=== PATIENT | female | born 1985 ===

== ENCOUNTER 2016-07-25 13:18 | Inpatient (IN) | payer MEDICAID, OTHER ==
[2016-07-25 13:39] VITALS: BMI 37.9
--- NOTE | 2016-07-25 14:45 | OBHP ---
Datetime: 07/25/2016 14:15 IP Adm Impression: Term, intrauterine ; No Active Labor; Intact Membranes IP Admit Plan: Admit to unit; Initiate labor induction protocol Admit Comment, IP Provider: 31yo IUP at 39w c/o decreased FM and RENDON today. Found to have 2 + urine dip. Occ min CTX; no VB; No SROM PNC: Dr Walker CP chart rev'd PMH: denies PSHX: TUmmy teresack POBGYNH: Hx HSV x 2 TOP x 1 NKA A: IUP at 39+w Proteinuria decreased FM PLAN: spoke to Dr Garzon will admit to L_D check pre-eclampsia labs start IOL with Cervidil...medications, pain management, delivery and discussed Pelvic Type - PN: Adequate Extremities - PN: Normal Abdomen - PN: Normal Back - PN: Normal Breast - PN: Not Done Lungs - PN: Normal Heart - PN: Normal Thyroid - PN: Normal Neurologic - PN: Normal HEENT - PN: Normal General - PN: Normal Presentation-Admit: Vertex FHR - Baseline A Provider: 140 Membranes, Provider: Intact Contraction Comments Provider: one Comments, ACOG Physical Exam: ROS: Geneeral no fatigue HEENT: + RENDON no visual dist CV: no CP; no SOB Resp: no SOB no cough GI: No N/V/D : no F/U/D MS: no joint pain Pool Provider: Negative IP Hx Assessment: The History has been Reviewed and is Current EGA AdmitDate IP: 39.1 Vital Signs Provider: Reviewed; Within Normal Limits IP Chief Complaint: Other NICHD Variability Prov Fetus A: Moderate 6-25bpm NICHD Accel Fetus A IP Provider: 15X15 FHR Category Provider Fetus A: Category I NICHD Decel Fetus A IP Provider: None Dilatation, Provider: FT Genitourinary Exam: Normal DTRs - PN: Abnormal
[2016-07-25 15:42] LABS: BASO % 0.5 % (0.0-2.0); EOS % 0.5 % (0.0-4.0); HEMATOCRIT 35.3 % (34.0-47.0); LYMPH # 1.9 K/uL (1.0-4.3); LYMPH % 21.8 % (20.0-40.0); MEAN CELL VOLUME 82.9 fl (81.0-99.0); MEAN CORPUSCULAR HEMOGLOBIN 27.3 pg (27.0-31.0); MEAN CORPUSCULAR HGB CONC 32.9 g/dL (33.0-37.0); MEAN PLATELET VOLUME 10.2 fl (7.2-11.7); MONO # 0.4 K/uL (0.0-0.8); MONO % 4.3 % (0.0-10.0); NEUT # 6.4 K/uL (1.8-7.0); NEUT % 72.9 % (50.0-75.0); NRBC % 0.1 % (0.0-0.0); RED CELL DISTRIBUTION WIDTH 16.1 % (11.5-14.5); WHITE BLOOD COUNT 8.8 K/uL (4.8-10.8)
[2016-07-25 15:50] LABS: ALB/GLOB RATIO 0.9 (1.0-2.1); ALKALINE PHOSPHATASE 207 U/L (38-126); ALT/SGPT 31 U/L (9-52); AST/SGOT 20 U/L (14-36); BILIRUBIN,TOTAL 0.3 mg/dl (0.2-1.3); BLOOD UREA NITROGEN 11 mg/dl (7-17); CALCIUM 9.3 mg/dL (8.4-10.2); CARBON DIOXIDE 19 mmol/L (22-30); CHLORIDE 108 mmol/L (98-107); GFR AFRICAN-AMERICAN > 60; GLUCOSE,RANDOM 78 mg/dL (65-105); POTASSIUM 4.2 MMOL/L (3.6-5.0); SODIUM 141 mmol/l (132-148); TOTAL PROTEIN 6.9 G/DL (6.3-8.2); URIC ACID 4.2 mg/Dl (2.2-7.5)
[2016-07-25 16:03] VITALS: BP 116/71; PULSE 92; RESP 18; TEMP 98.6
[2016-07-25 16:03] LABS: RBC URINE 235 /hpf (0-3); URINE BILIRUBIN NEGATIVE (NEGATIVE); URINE BLOOD LARGE (NEGATIVE); URINE COLOR AMBER (YELLOW); URINE GLUCOSE (UA) NEG (Normal); URINE KETONE NEGATIVE (NEGATIVE); URINE LEUKOCYTE ESTERASE SMALL Leu/uL (Negative); URINE PROTEIN 100 mg/dL (NEGATIVE); URINE UROBILINOGEN 0.2-1.0 mg/dL (0.2-1.0); WBC URINE 74 /hpf (0-5)
--- NOTE | 2016-07-25 17:38 | OBADHP ---
Datetime: 07/25/2016 17:32 IP Chief Complaint Other: proteinuria/headaches IP Adm Impression Other: decreased fm, labor pains and proteinuria Admit Comment, IP Provider: GBS neg will admit and augument labor Pt understands and agreed Extremities - PN: Normal Abdomen - PN: Abnormal Breast - PN: Normal Lungs - PN: Normal Thyroid - PN: Normal Neurologic - PN: Normal HEENT - PN: Normal General - PN: Normal Presentation-Admit: cephalic FHR - Baseline A Provider: 140's Comments, ACOG Physical Exam: Abd gravid NT, fundus at term, Ext no calf tenderness DTS slightly angelica sk Gestation - Est Wks by US: 39.0 IP Chief Complaint: Uterine contractions; Decreased movement; Other NICHD Variability Prov Fetus A: Moderate 6-25bpm NICHD Accel Fetus A IP Provider: 10X10 NICHD Decel Fetus A IP Provider: None Genitourinary Exam: Normal DTRs - PN: Abnormal EGA AdmitDate IP: 39.1 IP Adm Impression: Term, intrauterine ; No Active Labor IP Admit Plan: Admit to unit; Initiate labor augmentation protocol
[2016-07-26] MEDS ORDERED: Lactated Ringer's 1,000 ML IV SCH ×2 (00:30→01:00)
--- NOTE | 2016-07-26 01:26 | OBDS ---
MATERNAL INFORMATION Estimated Blood Loss (ml): 200cc Maternal Complications: None Provider Comments: Delivered a living baby boy appears term cried spontaneously AF meconium stained 9/9' Placenta complete and intact Uterus contracted well no complications No vaginal cervical o r perineal tears Rectal done no defects LABOR SUMMARY EDC: 07/31/2016 00:00 LABOR INFORMATION Cervical Ripening Agents: Cervidil (Annotations: applied vaginally by ) Group B Beta Strep: Negative Steroids Given: None Reason Steroids Not Administered: Not Applicable VAGINAL DELIVERY Episiotomy: None Laceration Extension: N/A Laceration Type: None Laceration Repair: Not Applicable Laceration Repair Note: n/a Sponge Count Correct: Yes Sharps Count Correct: N/A Count Comment: count correct BABY A INFORMATION Forceps: N/A Vacuum Extraction: N/A Shoulder Dystocia : No PRESENTATION/POSITION BABY A Presentation: Cephalic Cephalic Presentation: Vertex Vertex Position: Left Occipital Anterior Breech Presentation: N/A
[2016-07-26] MEDS ORDERED: Oxycodone/Acetaminophen 5/325 mg Tab PO PRN (01:37)
[2016-07-26] MEDS ORDERED: Oxytocin 30 units/LR 500ML 30 U/500 ML BAG IV SCH (01:37)
[2016-07-26 12:02] LABS: HEMATOCRIT 31.7 % (34.0-47.0); MEAN CELL VOLUME 82.4 fl (81.0-99.0); MEAN CORPUSCULAR HEMOGLOBIN 27.4 pg (27.0-31.0); MEAN CORPUSCULAR HGB CONC 33.2 g/dL (33.0-37.0); RED CELL DISTRIBUTION WIDTH 15.5 % (11.5-14.5)
--- NOTE | 2016-07-27 07:52 | OBPPN ---
Datetime: 07/27/2016 07:46 PP Pain Prov: Within normal limits PP Pain Prov comment: no SOB, chest pains or leg pains PP Nausea Prov: Denies PP Flatus Prov: Yes PP Lungs Prov: Normal PP Abdomen/Uterus Prov: Abnormal PP Lochia Prov: Normal PP Vulva/Perineum Prov: Normal PP CVA Tenderness Prov: Normal PP Extremities Prov: Normal PP C/S Incision Prov: Not Applicable PP Progress Prov: Normal PP Comments Phys Exam Prov: Abd soft not distended fundus firm below the umb NT, Perineum intact Ext no calf tenderness PP Impression Prov: Normal progression PP Plan Prov: Continue present management PP Progress Note Prov: Continue PP care OOB and ambulation IP PP Procedures: None Vital Signs Provider PP: Reviewed
--- NOTE | 2016-07-28 09:16 | OBPPN ---
Datetime: 07/28/2016 09:13 PP Pain Prov: Within normal limits PP Pain Prov comment: no SOB chest pain or leg pains PP Nausea Prov: Denies PP Flatus Prov: Yes PP Breasts Prov: Normal PP Lungs Prov: Normal PP Lochia Prov: Normal PP Vulva/Perineum Prov: Normal PP CVA Tenderness Prov: Normal PP Extremities Prov: Normal PP C/S Incision Prov: Not Applicable PP Progress Prov: Normal PP Comments Phys Exam Prov: Abd soft not tender ND, fundus firm below the umb. Ext no calf tenderne ss PP Impression Prov: Normal progression PP Plan Prov: Discharge PP Progress Note Prov: d/c home with instruction IP PP Procedures: None Vital Signs Provider PP: Reviewed
--- NOTE | 2016-07-28 09:18 | OBDCSUM ---
Datetime: 07/28/2016 09:15 Discharged to, Provider: Home Follow up at, Provider: Dr Walker Disch Instr Activity: Bedrest; May be up to bathroom; May be up for meals; May Shower Disch Instr Diet: Regular Discharge Instructions, Provider: Routine instructions given Discharge Diagnosis, Provider: Term Delivered Discharge Time: 07/28/2016 09:15 Follow up in weeks, Provider: 4-6 wks Disch Referrals: None Contraception discussed, Prov: Yes Disch Activity Restrictions: No exercising; No lifting; No driving; Minimize walking; Minimize stair -climbing; No sexual activity; Nothing in vagina - [place], tampons, douche Discharge Comment, Provider: pelvic and bed rest Continue PNC vit and iron Contraception after Delivery: Undecided
== END 2016-07-28 18:10 | disposition home or self-care (01) | DRG 774 ==
LOC: H.EROB2 13:18 → H.L&D 14:27 → H.OB/GYN 07-26 03:03
PROVIDERS: ADMIT Specialist; ATTEND Specialist
PROC: 4A1HXCZ Monitoring of Products of Conception, Cardiac Rate, External Approach (ICD-10-PCS; 2016-07-25)
PROC: 10E0XZZ Delivery of Products of Conception, External Approach (ICD-10-PCS; principal; 2016-07-26)
DX: O99.42 Diseases of the circulatory system complicating childbirth (principal); R03.0 Elevated blood-pressure reading, without diagnosis of hypertension; O36.8130 Decreased fetal movements, third trimester, not applicable or unspecified; Z37.0 Single live birth; O77.0 Labor and delivery complicated by meconium in amniotic fluid; Z3A.39 39 weeks gestation of pregnancy